=== PATIENT | male | born 1960 | race African-American/Black ===

== ENCOUNTER 2017-02-01 09:33 | Emergency (ER) | payer OTHER ==
[~2017-02-01] VITALS: Ht 165.1 cm; Wt 106.3 kg
[~2017-02-01 09:33] MED LIST: ASPI325T24 PO; LISI-586 PO; MEGATAB4 PO
[2017-02-01 09:36] VITALS: BP 160/106; PULSE 76; RESP 16; TEMP 98.3; O2SAT 96
[2017-02-01] MEDS ORDERED: LISI-515 PO (09:43)
--- NOTE | 2017-02-01 09:55 | PD ---
HPI Chief Complaint: Laceration/Skin Injury Time Seen by Provider: 09:42 Travel History International Travel<30 days: No Contact w/Intl Traveler<30days: No Traveled to known affect area: No History of Present Illness HPI The patient is a 57-year-old male who presents emergency department for a puncture wound to the right hand. The patient was physician earlier today when he received a puncture to the right hand between the thumb and index finger with a catfish arley. The patient had a family member pulled the catfish arley out, she believes that she pulled the entire catfish arley out. He does state it bled initially but is currently stopped. Last tetanus shot is unknown. He notes minimal pain to the affected area. He is right-hand dominant. There is no weakness, paresthesias, numbness, or tingling of the right upper extremity. Symptoms are mild, exacerbated after a puncture wound to the affected area, and alleviated after a family member pulled the arley from the hand. PFSH Past Medical History Cancer: No Cardiovascular Problems: No Diabetes: No Endocrine: No Gastrointestinal Disorders: Yes (ACID REFLUX) Genitourinary: No Hepatitis: No Hiatal Hernia: No Hypertension: Yes Immune Disorder: No Musculoskeletal: No Neurologic: No Psychiatric: No Reproductive: No Respiratory: No Integumentary: Yes (CYST ON HEAD, JUST FINISHED TREATING FOR INFECTION) Thyroid Disease: No Tetanus Vaccination: Unknown Influenza Vaccination: Yes ?: Not Past Surgical History AICD: No Joint Replacement: No Pacemaker: No Other Surgery: Yes Social History Alcohol Use: No Tobacco Use: No Substance Use: No Allergies-Medications (Allergen,Severity, Reaction): Coded Allergies: No Known Allergies (Verified , 02/01/17) Reported Meds & Prescriptions Reported Meds & Active Scripts Active Doxycycline Hyclate 100 Mg Cap 100 Mg PO BID 7 Days Levaquin (Levofloxacin) 750 Mg Tablet 1 Tab PO DAILY Reported Lisinopril 20 Mg Tab 20 Mg PO DAILY Review of Systems General / Constitutional: No: Fever Musculoskeletal: Positive: Pain Skin: Positive Other (puncture wound) Neurologic: No: Paresthesia, Sensory Disturbance Physical Exam Narrative GENERAL: Awake, alert, very pleasant 57-year-old male who appears his stated age and is in no acute respiratory distress. SKIN: Focused skin assessment warm/dry. HEAD: Atraumatic. Normocephalic. EYES: No injection or drainage. NECK: Trachea midline. No JVD. MUSCULOSKELETAL: Patient has a small puncture wound to the webspace between the thumb and index finger. There is no palpable foreign body. No palpable abscess. Minimal edema noted. Positive right radial pulse. Full range of motion with flexion of the MCP, PIP, and DIP. NEUROLOGICAL: Awake and alert. No obvious cranial nerve deficits. Motor grossly within normal limits. Normal speech. PSYCHIATRIC: Appropriate mood and affect; insight and judgment normal. Data Data Last Documented VS Vital Signs Date Time Temp Pulse Resp B/P Pulse Ox O2 Delivery O2 Flow Rate FiO2 02/01/17 09:36 98.3 76 16 160/106 96 Orders Tetanus/Diphtheria Tox Adult (Tetanus/Di (02/01/17 10:00) Hand, Limited (2vws) (02/01/17 ) Doxycycline (Vibramycin) (02/01/17 10:15) Levofloxacin (Levaquin) (02/01/17 10:15) MDM Medical Decision Making Medical Screen Exam Complete: Yes Emergency Medical Condition: Yes Medical Record Reviewed: Yes Interpretation(s) X-ray of the right hand reveals no radiopaque foreign bodies visible Differential Diagnosis Differential diagnosis includes puncture wound, retained foreign body, abscess, neurovascular injury. Narrative Course An x-ray of the right hand was obtained to rule out foreign body. The patient' s wound was cleaned, and then soaked in warm water with a small amount of Betadine. The tetanus shot was updated. Diagnosis Primary Impression: Puncture wound Patient Instructions: General Instructions Additional Instructions: Medications as directed. Follow-up with your primary physician. Antibiotics as directed. Return if symptoms worsen or progress. Med/Other Pt SpecificInfo: Prescription(s) given Scripts Doxycycline Hyclate 100 Mg [id number] Mg PO BID 7 Days Ref 0 Prov:Moses Alejo MD 02/01/17 Levofloxacin (Levaquin)750 Mg Tablet1 Tab PO DAILY #7 Prov:Moses Alejo MD 02/01/17 Disposition: 01 DISCHARGE HOME Condition: Stable Moses Alejo MD Feb 01, 2017 09:55
[2017-02-01] MEDS ORDERED: LEVA750T9 PO (10:00)
[2017-02-01] MEDS ORDERED: TETANUS/DIPHTHERIA TOXOID ADULT 0.5 ML VIAL IM ONE (10:00)
[2017-02-01] MEDS ORDERED: DOXY100C PO (10:00)
[2017-02-01] MEDS ORDERED: LEVOFLOXACIN 750 MG TAB PO ONE (10:15)
[2017-02-01] MEDS ORDERED: DOXYCYCLINE HYCLATE 100 MG CAP PO ONE (10:15)
--- NOTE | 2017-02-01 10:21 | RADRPT ---
EXAM DATE/TIME: 02/01/2017 09:57 [facility] COMPARISON: No previous studies available for comparison. INDICATIONS : Foreign body, catfish arley punctured right hand between 1st and 2nd digit. MEDICAL HISTORY : None. SURGICAL HISTORY : None. ENCOUNTER: Initial ACUITY: 1 day PAIN SCORE: 3/10 LOCATION: Right hand FINDINGS: Two view examination of the right hand demonstrates no soft tissue swelling, dislocation, or fracture . The joint spaces are maintained. Bony mineralization is normal. No foreign bodies are demonstrat ed between the first and second fingers. CONCLUSION: No radiopaque foreign bodies demonstrated. Gonzales Patel MD on February 01, 2017 at 10:18 Board Certified Radiologist. This report was verified electronically.
== END 2017-02-01 10:37 | disposition home or self-care (01) ==
LOC: PHED 09:33
DX: S61.431A Puncture wound without foreign body of right hand, initial encounter (principal); W56.59XA Other contact with other fish, initial encounter; Z23 Encounter for immunization
CPT/HCPCS: 73120; 90471; 90714

== ENCOUNTER 2017-10-07 17:37 | Emergency (ER) | payer OTHER ==
[~2017-10-07] VITALS: Ht 165.1 cm; Wt 102.0 kg
[~2017-10-07 17:37] MED LIST changes: -ASPI325T24 PO; +DOXY100C PO; +LEVA750T9 PO; +LISI-515 PO; -LISI-586 PO; -MEGATAB4 PO
[2017-10-07 17:47] VITALS: BP 188/87; PULSE 101; RESP 18; TEMP 99.4; O2SAT 97
== END 2017-10-07 18:37 | disposition left against medical advice (07) ==
LOC: NED 17:37
DX: L98.9 Disorder of the skin and subcutaneous tissue, unspecified (principal)
CPT/HCPCS: 99281

== ENCOUNTER 2018-06-08 19:36 | Inpatient (IN) ==
[2018-06-08] MEDS ORDERED: Pantoprazole Inj 40 MG Vial IV.PUSH ONE (21:14)
[2018-06-08] MEDS ORDERED: Sod Chloride 0.9% Inj 1,000 ML IV.SIG ONE (21:14)
--- NOTE | 2018-06-08 21:23 | ED ---
HPI General Chief complaint: Medical Clearance Stated complaint: Rectal bleeding Time Seen by Provider: 06/08/18 21:04 Source: patient and RN notes reviewed Mode of arrival: ambulatory Limitations: no limitations History of Present Illness HPI Narrative: 58-year-old male presents to the emergency department for evaluation of rectal bleeding that started on , 2 days ago. He states that when he has a bowel movement, and will fill the bowl with blood. Patient states he is having associated diarrhea, multiple episodes daily. He went to his primary care physician on and his primary care physician thought it was due to hemorrhoids and prescribed him suppositories. The patient states the bleeding has continued and has not slowed down. He states that today while working outdoors, he felt fatigued and short of breath so he was concerned that he was anemic. He denies any history of GI bleed in the past. He states he was on a baby aspirin, but quit taking it on when the bleeding started. He is not on any other anticoagulants. He denies any alcohol use. He denies taking any anti-inflammatories. He denies any other symptoms or complaints. Moderate severity. MD complaint: Reports gross hematochezia Onset (ago): day(s) (2) Pain Consistency: constant Severity: mild Relieving factors: bowel movement Context: Reports hemorrhoids; Denies history of GI bleed, liver disease, swallowed FB, rectal trauma, alcohol abuse, known esophageal varices, foreign travel, unusual food and anticoagulant use Associated symptoms: Reports denies other symptoms Treatments Prior to Arrival: Reports suppositories Related Data Home Medications Medication Instructions Recorded Confirmed aspirin [Aspirin Childrens] 81 mg PO DAILY 06/08/18 06/08/18 lisinopril 20 mg PO DAILY 06/08/18 06/08/18 Allergies Allergy/AdvReac Type Severity Reaction Status Date / Time No Known Allergies Allergy Verified 06/08/18 21:15 Review of Systems ROS: all other systems reviewed are negative [facility] Medical History Medical History Hypertension (Acute) Social History Social History Substance History: No History of Abuse Second Hand Smoke Exposure: No Smoking Status: Never smoker How Often Do You Have a Drink Containing Alcohol: Never Recent Travel in [place] within the Last 8 Weeks: No Recent Out of Country Travel within the Last 8 Weeks: No Immunization History Tetanus Immunization: <5 Years Exam Narrative Exam Narrative: GENERAL: Well-nourished, well-developed male patient, afebrile. SKIN: Focused skin assessment warm/dry. HEAD: Normocephalic. Atraumatic. EYES: No scleral icterus. No injection or drainage. NECK: Supple, trachea midline. No JVD or lymphadenopathy. CARDIOVASCULAR: Regular rate and rhythm without murmurs, gallops, or rubs. RESPIRATORY: Breath sounds equal bilaterally. No accessory muscle use. Lung sounds are clear to auscultation GASTROINTESTINAL: Abdomen soft, non-tender, nondistended. MUSCULOSKELETAL: No cyanosis, or edema. RECTAL EXAM: No masses or tenderness, stool is dark red, Hemoccult is grossly positive. This exam was done with RN at bedside Procedures Hemaprompt Stool Procedural Steps Taken: specimen placed in appropriate test area, developer placed on specimen and control areas and controls appropriately positive and negative Hemaprompt Stool Result: positive Course Initial Documented Vital Signs Temperature 98.8 F 06/08/18 19:53 Pulse Rate 100 H 06/08/18 19:53 Respiratory Rate 16 06/08/18 19:53 Blood Pressure 141/63 H 06/08/18 19:53 Pulse Oximetry 97 06/08/18 19:53 Last Documented Vital Signs Temperature 98.8 F 06/08/18 19:53 Pulse Rate 88 06/08/18 21:20 Respiratory Rate 18 06/08/18 21:20 Blood Pressure 141/62 H 06/08/18 21:20 Pulse Oximetry 99 06/08/18 21:20 Medical Decision Making MUSTAPHA Attestation MUSTAPHA supervised visit: Yes Attestation: I was present with the advanced practitioner during the management of this patient. I discussed the case with the advanced practitioner and agree with the findings and plan as documented in their note except as noted below. 58yM presenting with lower GI bleed x 3 days. Patient has a distant history of diverticulosis/ diverticulitis which has not required intervention in the past, reports several episodes of dark red blood per rectum. He is on baby aspirin daily. He presented to the ED today because he was having palpitations, dyspnea , and fatigue while trying to do yardwork this afternoon. His abdomen is soft and non-tender in all quadrants. He was found to have diverticulosis and Hg 7.2 , will give PRBCs as patient is symptomatic. Patient will need to stay in the hospital for transfusion, re-evaluation at frequent intervals, and possible consultation. Patient understands and agrees with plan, informed consent is signed and on chart. MDM Narrative Medical decision making narrative: 58-year-old male presents to the emergency department for evaluation of GI bleed with associated diarrhea and fatigue since . IV access obtained. CBC, CMP, lipase, PTT, PT/INR, type and screen, CT abdomen/pelvis are ordered and pending. Patient is given normal saline 1 L IV bolus, Protonix 40 mg IV. CBC shows leukocytosis 12.0, anemia hemoglobin 7.2, hematocrit 22.8. CMP shows no acute abnormality. Lipase is 119. PTT is 24.8. PT/INR is 10.3/1.0. CT abdomen/pelvis shows No acute abnormalities are demonstrated; Sigmoid colon diverticulosis. No diverticulitis or other acute inflammatory changes. 2 units PRBCs are ordered. Patient will be admitted for GI consult, GI bleed. He verbalizes agreement. Medical Screen Exam Complete: Yes Emergency Medical Condition: Yes Differential Diagnosis Differential Diagnosis: colitis vs. lower GI bleed vs. hemorrhoids vs. anemia Medical Records Medical records reviewed: Yes I reviewed the patient's medical records. Lab Data Result diagrams: 06/08/18 21:55 06/08/18 21:55 Lab Results 06/08/18 06/08/18 06/08/18 Range/Units 21:55 21:55 21:55 WBC 12.0 H (4.0-11.0) th/mm3 RBC 2.73 L (4.50-5.90) mil/mm3 Hgb 7.2 L (13.0-17.0) gm/dL Hct 22.8 L (39.0-51.0) % MCV 83.7 (80.0-100.0) fL MCH 26.3 L (27.0-34.0) pg MCHC 31.4 L (32.0-36.0) % RDW 13.4 (11.6-17.2) % Plt Count 311 (150-450) th/mm3 MPV 7.7 (7.0-11.0) fL Neut % (Auto) 60.1 (16.0-70.0) % Lymph % (Auto) 27.3 (9.0-44.0) % [place] % (Auto) 8.9 H (0.0-8.0) % Eos % (Auto) 3.3 (0.0-4.0) % Baso % (Auto) 0.4 (0.0-2.0) % Neut # (Auto) 7.2 (1.8-7.7) th/mm3 Lymph # (Auto) 3.3 (1.0-4.8) th/mm3 [place] # (Auto) 1.1 H (0.0-0.9) th/mm3 Eos # (Auto) 0.4 (0.0-0.4) th/mm3 Baso # (Auto) 0.0 (0.0-0.2) th/mm3 WBC Differential . Differential Comment Auto diff final PT 10.3 (9.8-11.6) sec INR 1.0 Ratio APTT 24.8 (23.4-31.7) sec Sodium 145 (136-145) meq/L Potassium 4.2 (3.5-5.1) meq/L Chloride 109 H (98-107) meq/L Carbon Dioxide 28.5 (21.0-32.0) meq/L Anion Gap 8 (5-15) meq/L BUN 15 (7-18) mg/dL Creatinine 1.16 (0.60-1.30) mg/dL Estimated GFR 78 L (>89) mL/min Random Glucose 105 (74-106) mg/dL Calcium 7.9 L (8.5-10.1) mg/dL Total Bilirubin 0.1 L (0.2-1.0) mg/dL AST 20 (15-37) U/L ALT 28 (12-78) U/L Alkaline Phosphatase 49 (45-117) U/L Total Protein 6.2 L (6.4-8.2) g/dL Albumin 3.1 L (3.4-5.0) g/dL Lipase 119 (73-393) U/L Blood Type Blood Type Recheck Antibody Screen MTS Gel Crossmatch 06/08/18 06/08/18 Range/Units 21:55 22:25 WBC (4.0-11.0) th/mm3 RBC (4.50-5.90) mil/mm3 Hgb (13.0-17.0) gm/dL Hct (39.0-51.0) % MCV (80.0-100.0) fL MCH (27.0-34.0) pg MCHC (32.0-36.0) % RDW (11.6-17.2) % Plt Count (150-450) th/mm3 MPV (7.0-11.0) fL Neut % (Auto) (16.0-70.0) % Lymph % (Auto) (9.0-44.0) % [place] % (Auto) (0.0-8.0) % Eos % (Auto) (0.0-4.0) % Baso % (Auto) (0.0-2.0) % Neut # (Auto) (1.8-7.7) th/mm3 Lymph # (Auto) (1.0-4.8) th/mm3 [place] # (Auto) (0.0-0.9) th/mm3 Eos # (Auto) (0.0-0.4) th/mm3 Baso # (Auto) (0.0-0.2) th/mm3 WBC Differential Differential Comment PT (9.8-11.6) sec INR Ratio APTT (23.4-31.7) sec Sodium (136-145) meq/L Potassium (3.5-5.1) meq/L Chloride (98-107) meq/L Carbon Dioxide (21.0-32.0) meq/L Anion Gap (5-15) meq/L BUN (7-18) mg/dL Creatinine (0.60-1.30) mg/dL Estimated GFR (>89) mL/min Random Glucose (74-106) mg/dL Calcium (8.5-10.1) mg/dL Total Bilirubin (0.2-1.0) mg/dL AST (15-37) U/L ALT (12-78) U/L Alkaline Phosphatase (45-117) U/L Total Protein (6.4-8.2) g/dL Albumin (3.4-5.0) g/dL Lipase (73-393) U/L Blood Type O Negative Blood Type Recheck Required Antibody Screen Negative MTS Gel Crossmatch See Detail Imaging Data Radiologist's impression: Abdomen/Pelvis CT 06/08/18 21:14 CONCLUSION: 1. No acute abnormalities are demonstrated. 2. Sigmoid colon diverticulosis. No diverticulitis or other acute inflammatory changes. Discharge Plan Discharge Disposition Patient Disposition: 30 Still Patient Discharge Condition Condition: Stable Discharge Details Diagnosis: GI bleed, Anemia Physicians Team ED Provider: Paola Levine ED Midlevel Provider: Jannet Mohamud Primary Care Provider: HOMERO, Attending Provider: Kayla Oconnor Other Providers: Issac Joy Discharge Interventions Interventions: Vital Signs Last Done: 06/08/18 21:20 Status ED Status: Admitted Patient
--- NOTE | 2018-06-08 22:05 | CT ---
EXAM DATE: 06/08/2018 9:56 PM EST AGE/SEX: 58 years / Male INDICATIONS: Rectal bleeding past 2 days. CLINICAL DATA: This is the patient's initial encounter. Patient reports that signs and symptoms have been present for 2 days and indicates a pain score of 0/10. MEDICAL/SURGICAL HISTORY: Hypertension. None. RADIATION DOSE: 21.29 CTDI (mGy) COMPARISON: No prior exams available for comparison. TECHNIQUE: Multiple contiguous axial images were obtained through the abdomen. Images were obtained using multiple row detector helical technique. Using automated exposure control and adjustment of the mA and/or kV according to patient size, radiation dose was kept as low as reasonably achievable to o btain optimal diagnostic quality images. DICOM format image data is available electronically for rev iew and comparison. FINDINGS: Lower Lungs: The visualized lower lungs are clear. Coronary artery calcification noted. Liver: The liver has a homogeneous density without space-occupying lesion. There is no dilation of th e biliary tree. Spleen: Homogeneous density without enlargement. Pancreas: Unremarkable without mass or calcification. Kidneys: Normal in size and shape. No evidence of mass or hydronephrosis. Adrenal Glands: Unremarkable. Aorta: The aorta and proximal iliac vessels are grossly unremarkable without aneurysmal dilation. Bowel/Mesentery: Moderate severity diverticulosis involves the sigmoid colon. No acute inflammatory changes are seen. The appendix is normal. Bowel gas pattern is nonobstructive. No perceptible masses. No free fluid or free air. No lymphadenopathy. Abdominal Wall: Intact. Retroperitoneum: No evidence of adenopathy in the retrocrural, para-aortic, or deep pelvic regions. Bladder: Contours are smooth. Reproductive Organs: No abnormal masses or calcifications seen. Inguinal: The inguinal region is unremarkable without evidence of adenopathy. Bony Structures: Unremarkable. CONCLUSION: 1. No acute abnormalities are demonstrated. 2. Sigmoid colon diverticulosis. No diverticulitis or other acute inflammatory changes. Electronically signed by: Apolinar Luong MD 06/08/2018 10:03 PM EST
[2018-06-08 22:20] LABS: Baso % (Auto) 0.4 % (0.0-2.0); Eos # (Auto) 0.4 th/mm3 (0.0-0.4); Eos % (Auto) 3.3 % (0.0-4.0); Hematocrit 22.8 % (39.0-51.0); Hemoglobin 7.2 gm/dL (13.0-17.0); Lymph # (Auto) 3.3 th/mm3 (1.0-4.8); Lymph % (Auto) 27.3 % (9.0-44.0); Mean Corpuscular HGB Conc 31.4 % (32.0-36.0); Mean Corpuscular Hemoglobin 26.3 pg (27.0-34.0); Mean Corpuscular Volume 83.7 fL (80.0-100.0); Mean Platelet Volume 7.7 fL (7.0-11.0); Mono # (Auto) 1.1 th/mm3 (0.0-0.9); Mono % (Auto) 8.9 % (0.0-8.0); Neut # (Auto) 7.2 th/mm3 (1.8-7.7); Neut % (Auto) 60.1 % (16.0-70.0); Platelet Count 311 th/mm3 (150-450); Red Blood Count 2.73 mil/mm3 (4.50-5.90); Red Cell Distribution Width 13.4 % (11.6-17.2)
[2018-06-08 22:26] LABS: Activated Partial Thrombo Time 24.8 sec (23.4-31.7); Prothrombin Time 10.3 sec (9.8-11.6)
[2018-06-08 22:34] LABS: Alanine Aminotransferase 28 U/L (12-78); Albumin 3.1 g/dL (3.4-5.0); Anion Gap 8 meq/L (5-15); Aspartate Aminotransferase 20 U/L (15-37); Blood Urea Nitrogen 15 mg/dL (7-18); Calcium 7.9 mg/dL (8.5-10.1); Carbon Dioxide 28.5 meq/L (21.0-32.0); Chloride 109 meq/L (98-107); Glomerular Filtration Rate 78 mL/min (>89); Glucose,Random 105 mg/dL (74-106); Lipase 119 U/L (73-393); Potassium 4.2 meq/L (3.5-5.1); Sodium 145 meq/L (136-145)
[2018-06-08 22:36] LABS: Alkaline Phosphatase 49 U/L (45-117); Total Protein 6.2 g/dL (6.4-8.2)
[2018-06-08] MEDS ORDERED: Acetaminophen 325 MG Tablet PO PRN (22:53)
[2018-06-08] MEDS ORDERED: Bisacodyl 10 MG Supp RECTAL PRN (22:53)
--- NOTE | 2018-06-08 22:55 | P.HPIM ---
History of Present Illness Primary Care Physician: UNKNOWN History of Present Illness: This is a 58-year-old male with a PMH of HTN who presented to the ER for c/o rectal bleeding x2 days. States he has a h/o rectal bleeding from hemorrhoids approx 10yrs ago, s/p Colonoscopy q5 yrs which have been stable. States he woke up 2 days ago and had a bowel movement w/ significant amount of blood in the toilet, also notes multiple episodes of diarrhea. Seen by PCP at that time , symptoms thought to be due to hemorrhoids and given suppository. Notes ongoing rectal bleeding. On ASA 325mg qd, however stopped taking it 2 days ago at onset of symptoms. Also notes lethargy/fatigue. On arrival, BP 141/63, HR 100, O2 sat 97% on RA, Afebrile. WBC 12.0. Hemoglobin 7.2, previously 13.4 on 10/05/2011. INR 1.0. Chemistry essentially unremarkable. CT Abdomen/Pelvis no acute findings. 2u pRBC ordered in ER, currently pending transfusion. - Diagnosis (1) GI bleed (2) Anemia Review of Systems PAST FAMILY HISTORY: Reviewed. No h/o DM or CAD All other systems reviewed negative except as stated in HPI PMFSH - History History Provided By: Medical Record - Medical History Medical History: Medical History (Last Updated 06/08/18 @ 19:56 by Zandra Alvarez RN) Hypertension - Tobacco History Second Hand Smoke Exposure: No Smoking Status: Never smoker - Alcohol History How Often Do You Have a Drink Containing Alcohol: Never - Substance Use History Substance History: No History of Abuse - Travel History Recent Travel in the [facility] Within the Last 8 Weeks: No Recent Travel Out of the Country Within the Last 8 Weeks: No - Immunization History Tetanus Immunization: <5 Years Medications and Allergies Active Medications: Active Medications Sodium Chloride (Ns Flush) 2 ml IV.FLUSH PRN PRN PRN Reason: FLUSH AFTER USING IV ACCESS Allergies Allergy/AdvReac Type Severity Reaction Status Date / Time No Known Allergies Allergy Verified 06/08/18 21:15 Home Medications Medication Instructions Recorded Confirmed Type aspirin [Aspirin Childrens] 81 mg PO DAILY 06/08/18 06/08/18 History lisinopril 20 mg PO DAILY 06/08/18 06/08/18 History Exam Vital signs: Vital Signs 06/08/18 19:53 06/08/18 21:20 Temperature 98.8 F Pulse Rate 100 H 88 Respiratory Rate 16 18 Blood Pressure 141/63 H 141/62 H Pulse Oximetry 97 99 Intake & Output 06/08/18 06/08/18 06/09/18 06:59 18:59 06:59 Weight 101 kg Narrative: PE: GENERAL: Extremely pleasant middle-aged black male in no acute distress. SKIN: Focused skin assessment warm and dry. HEENT: PERRLA, EOMI. No scleral icterus or conjunctival pallor. No lid lag or facial droop. CARDIOVASCULAR: Regular rate and rhythm. No obvious murmurs to auscultation. No chest tenderness to palpation. RESPIRATORY: No obvious rhonchi or wheezing. Clear to auscultation. Breath sounds equal bilaterally. GASTROINTESTINAL: Abdomen soft, non-tender, nondistended. BS normal. MUSCULOSKELETAL: Extremities without clubbing, cyanosis, or edema. No obvious deformities. NEUROLOGICAL: Awake, alert and oriented x4. No focal neurologic deficits. Moving both upper and lower extremities spontaneously. PSYCHIATRIC: Appropriate mood and affect. Insight and judgment normal. Results - Labs CBC & Chem 7: 06/08/18 21:55 06/08/18 21:55 Labs: Short CBC 06/08/18 Range/Units 21:55 WBC 12.0 H (4.0-11.0) th/mm3 Hgb 7.2 L (13.0-17.0) gm/dL Hct 22.8 L (39.0-51.0) % Plt Count 311 (150-450) th/mm3 BMP 06/08/18 21:55 Sodium 145 Potassium 4.2 Chloride 109 H Carbon Dioxide 28.5 BUN 15 Creatinine 1.16 Calcium 7.9 L Liver Function 06/08/18 Range/Units 21:55 Total Bilirubin 0.1 L (0.2-1.0) mg/dL AST 20 (15-37) U/L ALT 28 (12-78) U/L Alkaline Phosphatase 49 (45-117) U/L Albumin 3.1 L (3.4-5.0) g/dL - Imaging Impressions Abdomen/Pelvis CT 06/08/18 21:14 CONCLUSION: 1. No acute abnormalities are demonstrated. 2. Sigmoid colon diverticulosis. No diverticulitis or other acute inflammatory changes. Caprini VTE Risk Assessment Caprini VTE Risk Assessment: No/Low Risk (score <= 1) VTE Pharmacological Exception Reason: Active bleeding Caprini Risk Assessment Model: Point Value = 1 Point Value = 2 Point Value = 3 Point Value = 5 Age 41-60 Minor surgery BMI > 25 kg/m2 Swollen legs Varicose veins or History of unexplained or recurrent spontaneous Oral contraceptives or hormone replacement Sepsis (< 1 month) Serious lung disease, including pneumonia (< 1 month) Abnormal pulmonary function Acute myocardial infarction Congestive heart failure (< 1 month) History of inflammatory bowel disease Medical patient at bed rest Age 61-74 Arthroscopic surgery Major open surgery (> 45 min) Laparoscopic surgery (> 45 min) Malignancy Confined to bed (> 72 hours) Immobilizing plaster cast Central venous access Age >= 75 History of VTE Family history of VTE Factor V Leiden Prothrombin [id number] Lupus anticoagulant Anticardiolipin antibodies Elevated serum homocysteine Heparin-induced thrombocytopenia Other congenital or acquired thrombophilia Stroke (< 1 month) Elective arthroplasty Hip, pelvis, or leg fracture Acute spinal cord injury (< 1 month) Prophylaxis Regimen: Total Risk Factor Score Risk Level Prophylaxis Regimen 0-1 Low Early ambulation 2 Moderate Order ONE of the following: *Sequential Compression Device (SCD) *Heparin 5000 units SQ BID 3-4 Higher Order ONE of the following medications: *Heparin 5000 units SQ TID *Enoxaparin/Lovenox 40 mg SQ daily (WT < 150 kg, CrCl > 30 mL/min) *Enoxaparin/Lovenox 30 mg SQ daily (WT < 150 kg, CrCl > 10-29 mL/min) *Enoxaparin/Lovenox 30 mg SQ BID (WT < 150 kg, CrCl > 30 mL/min) AND/OR *Sequential Compression Device (SCD) 5 or more Highest Order ONE of the following medications: *Heparin 5000 units SQ TID (Preferred with Epidurals) *Enoxaparin/Lovenox 40 mg SQ daily (WT < 150 kg, CrCl > 30 mL/min) *Enoxaparin/Lovenox 30 mg SQ daily (WT < 150 kg, CrCl > 10-29 mL/min) *Enoxaparin/Lovenox 30 mg SQ BID (WT < 150 kg, CrCl > 30 mL/min) AND *Sequential Compression Device (SCD) Assessment and Plan - Assessment (1) GI bleed Code(s): K92.2 - Gastrointestinal hemorrhage, unspecified Status: Acute (2) Anemia Code(s): D64.9 - Anemia, unspecified Status: Acute - Plan A/P: 1. GI Bleed: +rectal bleeding x2 days, stopped ASA 325mg 2 days ago, ongoing rectal bleeding w/ diarrhea. CT Abd/Pelvis w/ no acute findings, images reviewed. Consult GI for further eval/intervention. NPO after midnight. 2. Anemia: Symptomatic. Hgb 7.2, previously 13.4 on 10/05/11, +lethargy/ fatigue. 2u pRBC ordered for transfusion, follow up Hgb/Hct after transfusion complete. 3. DVT Prophylaxis: Pharmacologic contraindication in light of active bleeding 4. Social work for d/c planning as needed 5. Case discussed w/ ER physician at length, labs/records/imaging reviewed by me. (1) GI bleed Qualifiers: GI bleed type/associated pathology: unspecified gastrointestinal hemorrhage type Qualified Code(s): K92.2 - Gastrointestinal hemorrhage, unspecified (2) Anemia Qualifiers: Anemia type: unspecified type Qualified Code(s): D64.9 - Anemia, unspecified
--- NOTE | 2018-06-09 09:46 | P.CONGI ---
History of Present Illness Consult date: 06/09/18 Chief complaint: GI bleed, anemia History of Present Illness: This is a 58-year-old male who came into the hospital on 06/08/2018 with symptoms of uncontrolled rectal bleeding. Onset of symptoms approximately 3 days ago and states that the blood was bright red initially then turned a slightly darker color. Patient notes history of hemorrhoids, status post multiple colonoscopy , last one approximately 2 years ago along, no previous EGD. Patient denies any family history of colon cancer. Patient denies any nausea vomiting dyspepsia or dysphasia acute or chronic. Patient also has noted some diarrhea stools onset approximately 3 days ago when rectal bleeding was initiated. Patient also notes a history of the same symptoms approximately 10 years ago. Currently patient denies any abdominal pain. Labs reviewed which include hemoglobin 7.2, status post 2 unit packed RBC transfusion , WBC count 12, PT/INR 1, bilirubin and LFTs are normal. CT scan showed diverticulosis. Gastroenterology was consulted to assist in his care. Patient does note regular aspirin dose 325 mg daily but no ASA for the past 3 days. <Vida Rodriguez - Last Filed: 06/09/18 15:07> Review of Systems All other systems reviewed negative except as stated in HPI <Vida Rodriguez - Last Filed: 06/09/18 15:07> PMFSH - Medical History Medical History: Medical History (Last Updated 06/08/18 @ 19:56 by Zandra Alvarez RN) Hypertension <Issac Joy - Last Filed: 06/09/18 12:45> - History History Provided By: Patient, Medical Record - Medical History Medical History: Medical History (Last Updated 06/08/18 @ 19:56 by Zandra Alvarez RN) Hypertension - Tobacco History Second Hand Smoke Exposure: No Smoking Status: Never smoker - Alcohol History How Often Do You Have a Drink Containing Alcohol: Never - Substance Use History Substance History: No History of Abuse - Travel History Recent Travel in the [place] Within the Last 8 Weeks: No Recent Travel Out of the Country Within the Last 8 Weeks: No - Immunization History Tetanus Immunization: <5 Years <Vida Rodriguez - Last Filed: 06/09/18 15:07> Medications and Allergies Active Medications: Active Medications Acetaminophen (Tylenol) 650 mg PO Q4H PRN PRN Reason: Temp > 100.4 Al Hydroxide/Mg Hydroxide (Milk Of Magnesia Liq) 30 ml PO Q12H PRN PRN Reason: Mild Constipation Bisacodyl (Dulcolax Supp) 10 mg RECTAL DAILY PRN PRN Reason: SEVERE CONSITIPATION Bisacodyl (Dulcolax Ec) 20 mg PO ONCE ONE Stop: 06/09/18 16:01 Lactulose (Lactulose Liq) 30 ml PO DAILY PRN PRN Reason: SEVERE CONSITIPATION Magnesium Citrate (Citroma Liq) 300 ml PO ONCE ONE Stop: 06/09/18 16:01 Magnesium Citrate (Citroma Liq) 300 ml PO ONCE ONE Stop: 06/09/18 17:01 Ondansetron HCl (Zofran Inj) 4 mg IV.PUSH Q6H PRN PRN Reason: NAUSEA OR VOMITING Pantoprazole Sodium (Protonix Inj) 40 mg IV.PUSH Q12H [facility] Last Admin: 06/09/18 10:56 Dose: 40 mg Senna/Docusate Sodium (Carol[place]-Colace) 1 tab PO BID [facility] Last Admin: 06/09/18 10:56 Dose: 1 tab Sennosides (Senokot) 17.2 mg PO Q12H PRN PRN Reason: Moderate Constipation Sodium Chloride (Ns Flush) 2 ml IV.FLUSH PRN PRN PRN Reason: FLUSH AFTER USING IV ACCESS <Issac Joy - Last Filed: 06/09/18 12:45> Active Medications: Active Medications Acetaminophen (Tylenol) 650 mg PO Q4H PRN PRN Reason: Temp > 100.4 Al Hydroxide/Mg Hydroxide (Milk Of Magnesia Liq) 30 ml PO Q12H PRN PRN Reason: Mild Constipation Bisacodyl (Dulcolax Supp) 10 mg RECTAL DAILY PRN PRN Reason: SEVERE CONSITIPATION Bisacodyl (Dulcolax Ec) 20 mg PO ONCE ONE Stop: 06/09/18 16:01 Lactulose (Lactulose Liq) 30 ml PO DAILY PRN PRN Reason: SEVERE CONSITIPATION Magnesium Citrate (Citroma Liq) 300 ml PO ONCE ONE Stop: 06/09/18 16:01 Magnesium Citrate (Citroma Liq) 300 ml PO ONCE ONE Stop: 06/09/18 17:01 Ondansetron HCl (Zofran Inj) 4 mg IV.PUSH Q6H PRN PRN Reason: NAUSEA OR VOMITING Pantoprazole Sodium (Protonix Inj) 40 mg IV.PUSH Q12H TOBIAS Senna/Docusate Sodium ([place]-Colace) 1 tab PO BID [facility]BI[facility] Sennosides (Senokot) 17.2 mg PO Q12H PRN PRN Reason: Moderate Constipation Sodium Chloride (Ns Flush) 2 ml IV.FLUSH PRN PRN PRN Reason: FLUSH AFTER USING IV ACCESS <Vida Rodriguez - Last Filed: 06/09/18 15:07> Allergies Allergy/AdvReac Type Severity Reaction Status Date / Time No Known Allergies Allergy Verified 06/08/18 21:15 Home Medications Medication Instructions Recorded Confirmed Type aspirin [Aspirin Childrens] 81 mg PO DAILY 06/08/18 06/08/18 History lisinopril 20 mg PO DAILY 06/08/18 06/08/18 History Exam Vital signs: Vital Signs 06/08/18 19:53 06/08/18 21:20 06/09/18 00:00 Temperature 98.8 F 98.1 F Pulse Rate 100 H 88 88 Respiratory Rate 16 18 18 Blood Pressure 141/63 H 141/62 H 144/65 H Pulse Oximetry 97 99 99 06/09/18 02:09 06/09/18 02:30 06/09/18 04:00 Temperature 98.5 F 98.7 F 98.2 F Pulse Rate 93 H 89 89 Respiratory Rate 18 16 18 Blood Pressure 135/59 L 123/60 125/60 Pulse Oximetry 98 96 06/09/18 04:40 06/09/18 05:35 06/09/18 05:56 Temperature 97.6 F 98.7 F Pulse Rate 82 76 80 Respiratory Rate 18 16 Blood Pressure 145/65 H 139/65 Pulse Oximetry 99 100 06/09/18 08:00 06/09/18 11:39 Temperature 98.7 F 97.5 F L Pulse Rate 85 80 Respiratory Rate 16 16 Blood Pressure 154/70 H 146/63 H Pulse Oximetry 100 100 Intake & Output 06/08/18 06/09/18 06/09/18 18:59 06:59 18:59 Intake Total 1400 / 1400 Balance 1400 / 1400 Weight 101 kg Intake: IV 1000 / 1000 NS Inj 1,000 ML @ Wide Open IV. 1000 / 1000 SIG BOLUS ONE Rx#:[id number] Intake (Blood Product) Amt 400 / 400 Rbc As-3 Leukoreduced Unit 0 / 0 [id number] Rbc As-3 Leukoreduced Unit 400 / 400 [id number] Other: Weight On Admission 101 kg <Issac Joy - Last Filed: 06/09/18 12:45> Vital signs: Vital Signs 06/08/18 19:53 06/08/18 21:20 06/09/18 00:00 Temperature 98.8 F 98.1 F Pulse Rate 100 H 88 88 Respiratory Rate 16 18 18 Blood Pressure 141/63 H 141/62 H 144/65 H Pulse Oximetry 97 99 99 06/09/18 02:09 06/09/18 02:30 06/09/18 04:00 Temperature 98.5 F 98.7 F 98.2 F Pulse Rate 93 H 89 89 Respiratory Rate 18 16 18 Blood Pressure 135/59 L 123/60 125/60 Pulse Oximetry 98 96 06/09/18 04:40 06/09/18 05:35 06/09/18 05:56 Temperature 97.6 F 98.7 F Pulse Rate 82 76 80 Respiratory Rate 18 16 Blood Pressure 145/65 H 139/65 Pulse Oximetry 99 100 06/09/18 08:00 Temperature 98.7 F Pulse Rate 85 Respiratory Rate 16 Blood Pressure 154/70 H Pulse Oximetry 100 Intake & Output 06/08/18 06/09/18 06/09/18 18:59 06:59 18:59 Intake Total 1400 / 1400 Balance 1400 / 1400 Weight 101 kg Intake: IV 1000 / 1000 NS Inj 1,000 ML @ Wide Open IV. 1000 / 1000 SIG BOLUS ONE Rx#:[id number] Intake (Blood Product) Amt 400 / 400 Rbc As-3 Leukoreduced Unit 0 / 0 [id number] Rbc As-3 Leukoreduced Unit 400 / 400 [id number] Other: Weight On Admission 101 kg - Constitutional mild distress, obese, cooperative - Routine HEENT Exam Head: Present: normocephalic ENT: Present: mucous membranes moist - Routine Neck Exam Present: supple - Routine Respiratory Exam Present: CTA bilaterally (No obvious wheezing or rhonchi) - Routine Cardiovascular Exam Present: S1, S2 - Routine Abdominal Exam Present: soft (Round, no obvious tenderness to light palpation), normoactive bowel sounds - Routine Skin Exam Present: intact <Vida Rodriguez - Last Filed: 06/09/18 15:07> Results - Labs CBC & Chem 7: 06/09/18 11:50 06/08/18 21:55 Labs: Laboratory Results - last 24 hr 06/08/18 06/08/18 06/08/18 21:55 21:55 21:55 WBC 12.0 H RBC 2.73 L Hgb 7.2 L Hct 22.8 L MCV 83.7 MCH 26.3 L MCHC 31.4 L RDW 13.4 Plt Count 311 MPV 7.7 Neut % (Auto) 60.1 Lymph % (Auto) 27.3 [place] % (Auto) 8.9 H Eos % (Auto) 3.3 Baso % (Auto) 0.4 Neut # (Auto) 7.2 Lymph # (Auto) 3.3 [place] # (Auto) 1.1 H Eos # (Auto) 0.4 Baso # (Auto) 0.0 WBC Differential . Differential Comment Auto diff final PT 10.3 INR 1.0 APTT 24.8 Sodium 145 Potassium 4.2 Chloride 109 H Carbon Dioxide 28.5 Anion Gap 8 BUN 15 Creatinine 1.16 Estimated GFR 78 L Random Glucose 105 Calcium 7.9 L Total Bilirubin 0.1 L AST 20 ALT 28 Alkaline Phosphatase 49 Total Protein 6.2 L Albumin 3.1 L Lipase 119 Blood Type Blood Type Recheck Antibody Screen MTS Gel Crossmatch 06/08/18 06/08/18 06/09/18 21:55 22:25 11:50 WBC 14.0 H RBC 3.48 L Hgb 10.1 L D Hct 29.2 L MCV 84.1 MCH 28.9 MCHC 34.4 RDW 14.2 Plt Count 280 MPV 7.7 Neut % (Auto) 73.0 H Lymph % (Auto) 18.8 [place] % (Auto) 5.1 Eos % (Auto) 2.6 Baso % (Auto) 0.5 Neut # (Auto) 10.2 H Lymph # (Auto) 2.6 [place] # (Auto) 0.7 Eos # (Auto) 0.4 Baso # (Auto) 0.1 WBC Differential . Differential Comment Auto diff final PT INR APTT Sodium Potassium Chloride Carbon Dioxide Anion Gap BUN Creatinine Estimated GFR Random Glucose Calcium Total Bilirubin AST ALT Alkaline Phosphatase Total Protein Albumin Lipase Blood Type O Negative Blood Type Recheck Required Antibody Screen Negative MTS Gel Crossmatch See Detail - Imaging Impressions Abdomen/Pelvis CT 06/08/18 21:14 CONCLUSION: 1. No acute abnormalities are demonstrated. 2. Sigmoid colon diverticulosis. No diverticulitis or other acute inflammatory changes. <Issac Joy - Last Filed: 06/09/18 12:45> - Labs CBC & Chem 7: 06/09/18 11:50 06/09/18 11:50 Labs: Laboratory Results - last 24 hr 06/08/18 06/08/18 06/08/18 21:55 21:55 21:55 WBC 12.0 H RBC 2.73 L Hgb 7.2 L Hct 22.8 L MCV 83.7 MCH 26.3 L MCHC 31.4 L RDW 13.4 Plt Count 311 MPV 7.7 Neut % (Auto) 60.1 Lymph % (Auto) 27.3 [place] % (Auto) 8.9 H Eos % (Auto) 3.3 Baso % (Auto) 0.4 Neut # (Auto) 7.2 Lymph # (Auto) 3.3 [place] # (Auto) 1.1 H Eos # (Auto) 0.4 Baso # (Auto) 0.0 WBC Differential . Differential Comment Auto diff final PT 10.3 INR 1.0 APTT 24.8 Sodium 145 Potassium 4.2 Chloride 109 H Carbon Dioxide 28.5 Anion Gap 8 BUN 15 Creatinine 1.16 Estimated GFR 78 L Random Glucose 105 Calcium 7.9 L Total Bilirubin 0.1 L AST 20 ALT 28 Alkaline Phosphatase 49 Total Protein 6.2 L Albumin 3.1 L Lipase 119 Blood Type Blood Type Recheck Antibody Screen MTS Gel Crossmatch 06/08/18 06/08/18 21:55 22:25 WBC RBC Hgb Hct MCV MCH MCHC RDW Plt Count MPV Neut % (Auto) Lymph % (Auto) [place] % (Auto) Eos % (Auto) Baso % (Auto) Neut # (Auto) Lymph # (Auto) [place] # (Auto) Eos # (Auto) Baso # (Auto) WBC Differential Differential Comment PT INR APTT Sodium Potassium Chloride Carbon Dioxide Anion Gap BUN Creatinine Estimated GFR Random Glucose Calcium Total Bilirubin AST ALT Alkaline Phosphatase Total Protein Albumin Lipase Blood Type O Negative Blood Type Recheck Required Antibody Screen Negative MTS Gel Crossmatch See Detail - Imaging Impressions Abdomen/Pelvis CT 06/08/18 21:14 CONCLUSION: 1. No acute abnormalities are demonstrated. 2. Sigmoid colon diverticulosis. No diverticulitis or other acute inflammatory changes. <JenniferVida Jenifer - Last Filed: 06/09/18 15:07> Assessment and Plan - Plan Seen and examined with HOG RINGER, active bleeding, monitor labs. Transfuse as needed. IV Protonix. CT reviewed. Bowel prep today, egd/colonoscopy tomorrow. Thank you <RufinoDavenport - Last Filed: 06/09/18 12:45> - Plan 58-year-old male who came into the hospital on 06/08/2018 with symptoms of uncontrolled rectal bleeding. Onset of symptoms approximately 3 days ago and states that the blood was bright red initially then turned a slightly darker color. Patient notes history of hemorrhoids, status post multiple colonoscopy , last one approximately 2 years ago along, no previous EGD. Patient denies any family history of colon cancer. Patient denies any nausea vomiting dyspepsia or dysphasia acute or chronic. Patient also has noted some diarrhea stools onset approximately 3 days ago when rectal bleeding was initiated. Patient also notes a history of the same symptoms approximately 10 years ago. Currently patient denies any abdominal pain. Labs reviewed which include hemoglobin 7.2, status post 2 unit packed RBC transfusion, WBC count 12, PT/INR 1, bilirubin and LFTs are normal. CT scan showed diverticulosis. Gastroenterology was consulted to assist in his care. Patient does note regular aspirin dose 325 mg daily but no ASA for the past 3 days. Symptomatic anemia, probably related to rectal bleeding, diverticuli versus hemorrhoids or both Rectal bleeding times 3 days significant amount dripping in the toilet. Initially started out bright red bleeding but has darkened to a moderate to dark maroon color over the past [address] scan did show diverticulosis. History of fiber consumption outpatient daily routine. History of polyps last colonoscopy approximately 2 years ago but has had a total of 3 for surveillance of his polyps. Diverticulosis, seen on CT scan Plan Diet clear liquids today Consent for EGD/colonoscopy with possible IRC in a.m. n.p.o. at midnight except for medications needed Monitor labs and transfuse as needed Monitor bloody stools and any symptoms of dizziness or near syncopal episodes Supportive care Further recommendations to follow Patient was seen per myself and Dr. Joy, note was written on his behalf <Vida Rodriguez - Last Filed: 06/09/18 15:07>
[2018-06-09] MEDS: Pantoprazole Inj 40 MG Vial IV.PUSH SCH ×2 (10:56→21:00)
[2018-06-09] MEDS: Senna/Docusate Sodium 8.6/50 MG Tablet PO SCH ×2 (10:56→21:00)
[2018-06-09 12:29] LABS: Baso # (Auto) 0.1 th/mm3 (0.0-0.2); Baso % (Auto) 0.5 % (0.0-2.0); Eos # (Auto) 0.4 th/mm3 (0.0-0.4); Eos % (Auto) 2.6 % (0.0-4.0); Hematocrit 29.2 % (39.0-51.0); Hemoglobin 10.1 gm/dL (13.0-17.0); Lymph # (Auto) 2.6 th/mm3 (1.0-4.8); Lymph % (Auto) 18.8 % (9.0-44.0); Mean Corpuscular HGB Conc 34.4 % (32.0-36.0); Mean Corpuscular Hemoglobin 28.9 pg (27.0-34.0); Mean Corpuscular Volume 84.1 fL (80.0-100.0); Mean Platelet Volume 7.7 fL (7.0-11.0); Mono # (Auto) 0.7 th/mm3 (0.0-0.9); Mono % (Auto) 5.1 % (0.0-8.0); Neut # (Auto) 10.2 th/mm3 (1.8-7.7); Platelet Count 280 th/mm3 (150-450); Red Blood Count 3.48 mil/mm3 (4.50-5.90); Red Cell Distribution Width 14.2 % (11.6-17.2)
[2018-06-09 12:56] LABS: Albumin 3.5 g/dL (3.4-5.0); Anion Gap 10 meq/L (5-15); Aspartate Aminotransferase 21 U/L (15-37); Blood Urea Nitrogen 13 mg/dL (7-18); Calcium 7.9 mg/dL (8.5-10.1); Carbon Dioxide 25.5 meq/L (21.0-32.0); Chloride 108 meq/L (98-107); Glomerular Filtration Rate 81 mL/min (>89); Glucose,Random 118 mg/dL (74-106); Potassium 3.8 meq/L (3.5-5.1); Sodium 143 meq/L (136-145)
[2018-06-09 12:59] LABS: Alanine Aminotransferase 29 U/L (12-78); Alkaline Phosphatase 51 U/L (45-117); Total Protein 6.8 g/dL (6.4-8.2)
[2018-06-09] MEDS ORDERED: Magnesium Citrate Liq 300 ML Bottle PO ONE ×2 (16:00→17:00)
--- NOTE | 2018-06-09 16:30 | P.PN ---
Subjective Interval history: Patient is seen lying in bed. He is just completing second unit of PRBCs. Says that he feels better with less fatigue. No chest pain or shortness of breath. No nausea vomiting or diarrhea. Physical Exam Vital signs: Vital Signs 06/08/18 19:53 06/08/18 21:20 06/09/18 00:00 Temperature 98.8 F 98.1 F Pulse Rate 100 H 88 88 Respiratory Rate 16 18 18 Blood Pressure 141/63 H 141/62 H 144/65 H Pulse Oximetry 97 99 99 06/09/18 02:09 06/09/18 02:30 06/09/18 04:00 Temperature 98.5 F 98.7 F 98.2 F Pulse Rate 93 H 89 89 Respiratory Rate 18 16 18 Blood Pressure 135/59 L 123/60 125/60 Pulse Oximetry 98 96 06/09/18 04:40 06/09/18 05:35 06/09/18 05:56 Temperature 97.6 F 98.7 F Pulse Rate 82 76 80 Respiratory Rate 18 16 Blood Pressure 145/65 H 139/65 Pulse Oximetry 99 100 06/09/18 08:00 06/09/18 09:00 06/09/18 11:39 Temperature 98.7 F 97.5 F L Pulse Rate 85 82 80 Respiratory Rate 16 16 Blood Pressure 154/70 H 146/63 H Pulse Oximetry 100 100 06/09/18 16:00 Temperature 97.5 F L Pulse Rate 78 Respiratory Rate 16 Blood Pressure 134/66 Pulse Oximetry 99 Intake & Output 06/08/18 06/09/18 06/09/18 18:59 06:59 18:59 Intake Total 1400 / 1400 Balance 1400 / 1400 Weight 101 kg Intake: IV 1000 / 1000 NS Inj 1,000 ML @ Wide Open IV. 1000 / 1000 SIG BOLUS ONE Rx#:[id number] Intake (Blood Product) Amt 400 / 400 Rbc As-3 Leukoreduced Unit 0 / 0 [id number] Rbc As-3 Leukoreduced Unit 400 / 400 [id number] Other: Weight On Admission 101 kg Narrative: GENERAL: Extremely pleasant middle-aged -[place] male in no acute distress. SKIN: Focused skin assessment warm and dry. CARDIOVASCULAR: Regular rate and rhythm. No obvious murmurs to auscultation. No chest tenderness to palpation. RESPIRATORY: No obvious rhonchi or wheezing. Clear to auscultation. Breath sounds equal bilaterally. GASTROINTESTINAL: Abdomen soft, non-tender, nondistended. BS normal. MUSCULOSKELETAL: Extremities without clubbing, cyanosis, or edema. No obvious deformities. NEUROLOGICAL: Awake, alert and oriented x4. No focal neurologic deficits. Moving both upper and lower extremities spontaneously. PSYCHIATRIC: Appropriate mood and affect. Insight and judgment normal. Results - Labs CBC & Chem 7: 06/09/18 11:50 06/09/18 11:50 Laboratory Results - last 24 hr 06/08/18 06/08/18 06/08/18 21:55 21:55 21:55 WBC 12.0 H RBC 2.73 L Hgb 7.2 L Hct 22.8 L MCV 83.7 MCH 26.3 L MCHC 31.4 L RDW 13.4 Plt Count 311 MPV 7.7 Neut % (Auto) 60.1 Lymph % (Auto) 27.3 [place] % (Auto) 8.9 H Eos % (Auto) 3.3 Baso % (Auto) 0.4 Neut # (Auto) 7.2 Lymph # (Auto) 3.3 [place] # (Auto) 1.1 H Eos # (Auto) 0.4 Baso # (Auto) 0.0 WBC Differential . Differential Comment Auto diff final PT 10.3 INR 1.0 APTT 24.8 Sodium 145 Potassium 4.2 Chloride 109 H Carbon Dioxide 28.5 Anion Gap 8 BUN 15 Creatinine 1.16 Estimated GFR 78 L Random Glucose 105 Calcium 7.9 L Total Bilirubin 0.1 L AST 20 ALT 28 Alkaline Phosphatase 49 Total Protein 6.2 L Albumin 3.1 L Lipase 119 Blood Type Blood Type Recheck Antibody Screen MTS Gel Crossmatch 06/08/18 06/08/18 06/09/18 21:55 22:25 11:50 WBC 14.0 H RBC 3.48 L Hgb 10.1 L D Hct 29.2 L MCV 84.1 MCH 28.9 MCHC 34.4 RDW 14.2 Plt Count 280 MPV 7.7 Neut % (Auto) 73.0 H Lymph % (Auto) 18.8 [place] % (Auto) 5.1 Eos % (Auto) 2.6 Baso % (Auto) 0.5 Neut # (Auto) 10.2 H Lymph # (Auto) 2.6 [place] # (Auto) 0.7 Eos # (Auto) 0.4 Baso # (Auto) 0.1 WBC Differential . Differential Comment Auto diff final PT INR APTT Sodium Potassium Chloride Carbon Dioxide Anion Gap BUN Creatinine Estimated GFR Random Glucose Calcium Total Bilirubin AST ALT Alkaline Phosphatase Total Protein Albumin Lipase Blood Type O Negative Blood Type Recheck Required Antibody Screen Negative MTS Gel Crossmatch See Detail 06/09/18 11:50 WBC RBC Hgb Hct MCV MCH MCHC RDW Plt Count MPV Neut % (Auto) Lymph % (Auto) [place] % (Auto) Eos % (Auto) Baso % (Auto) Neut # (Auto) Lymph # (Auto) [place] # (Auto) Eos # (Auto) Baso # (Auto) WBC Differential Differential Comment PT INR APTT Sodium 143 Potassium 3.8 Chloride 108 H Carbon Dioxide 25.5 Anion Gap 10 BUN 13 Creatinine 1.12 Estimated GFR 81 L Random Glucose 118 H Calcium 7.9 L Total Bilirubin 0.7 AST 21 ALT 29 Alkaline Phosphatase 51 Total Protein 6.8 D Albumin 3.5 Lipase Blood Type Blood Type Recheck Antibody Screen MTS Gel Crossmatch - Imaging Impressions Abdomen/Pelvis CT 06/08/18 21:14 CONCLUSION: 1. No acute abnormalities are demonstrated. 2. Sigmoid colon diverticulosis. No diverticulitis or other acute inflammatory changes. Assessment and Plan - Assessment (1) GI bleed Code(s): K92.2 - Gastrointestinal hemorrhage, unspecified Status: Acute (2) Anemia Code(s): D64.9 - Anemia, unspecified Status: Acute - Plan 58-year-old -[place]in[place] male who comes to the ED after 2 days of rectal bleeding. GI Bleed: Consult GI for further eval/intervention. Plan colonoscopy on 06/10/18. Anemia: Symptomatic. Hgb 7.2 2u pRBC transfused on 06/09 DVT Prophylaxis: Pharmacologic contraindication in light of active bleeding Social work for d/c planning as needed (1) GI bleed Qualifiers: GI bleed type/associated pathology: unspecified gastrointestinal hemorrhage type Qualified Code(s): K92.2 - Gastrointestinal hemorrhage, unspecified (2) Anemia Qualifiers: Anemia type: unspecified type Qualified Code(s): D64.9 - Anemia, unspecified
[2018-06-09] MEDS ORDERED: Metoprolol Tartrate 25 MG Tablet PO PRN (16:45)
[2018-06-09] MEDS ORDERED: Chlorhexidine Gluconate 2% 1 Pack (2 Cloths) TOPICAL ONE (16:45)
[2018-06-09] MEDS ORDERED: Sodium Chlor 0.9% Inj 500 ML IV.SIG SCH (17:00)
[2018-06-10] MEDS: Pantoprazole Inj 40 MG Vial IV.PUSH SCH ×2 (09:00→20:04)
[2018-06-10] MEDS: Senna/Docusate Sodium 8.6/50 MG Tablet PO SCH ×2 (09:00→20:05)
[2018-06-10 09:03] VITALS: RESP 18
--- NOTE | 2018-06-10 12:06 | ECG ---
Date Performed: 06/10/2018 Time Performed: 07:07:29 PTAGE: 58 years EKG: Sinus rhythm INCOMPLETE RIGHT BUNDLE BRANCH BLOCK BORDERLINE ECG Since the PREVIOUS TRACING , no significant change noted PREVIOUS TRACIN05/20/2014 08.31 DOCTOR: Henrry Michelle Interpretating Date/Time 06/10/2018 12:02:44
--- NOTE | 2018-06-10 12:56 | P.PN ---
Subjective Interval history: Follow-up GI bleed/symptomatic anemia June 10, 2018-patient seen and examined, currently n.p.o. pending panendoscopy. Still reports bright red blood per rectum. by the bedside. Vital stable. Physical Exam Vital signs: Vital Signs 06/09/18 16:00 06/09/18 17:05 06/09/18 20:00 Temperature 97.5 F L 98.7 F 99.4 F Pulse Rate 78 72 84 Respiratory Rate 16 20 20 Blood Pressure 134/66 144/68 H 132/58 L Pulse Oximetry 99 100 96 06/10/18 00:00 06/10/18 03:35 06/10/18 04:00 Temperature 98.5 F 98.4 F Pulse Rate 89 92 H 93 H Respiratory Rate 20 20 Blood Pressure 130/57 L 131/60 Pulse Oximetry 98 99 06/10/18 08:00 06/10/18 12:00 Temperature 99.1 F 98.3 F Pulse Rate 78 92 H Respiratory Rate 18 18 Blood Pressure 135/73 140/59 L Pulse Oximetry 99 98 Intake & Output 06/09/18 06/10/18 06/10/18 18:59 06:59 18:59 Weight 103.6 kg 103.4 kg Other: # Voids 2 Date of Last Bowel Movement 06/09/18 # Bowel Movements 2 Narrative: GENERAL: Extremely pleasant middle-aged -Citizen Of [place] male in no acute distress. SKIN: Focused skin assessment warm and dry. CARDIOVASCULAR: Regular rate and rhythm. No obvious murmurs to auscultation. No chest tenderness to palpation. RESPIRATORY: No obvious rhonchi or wheezing. Clear to auscultation. Breath sounds equal bilaterally. GASTROINTESTINAL: Abdomen soft, non-tender, nondistended. BS normal. MUSCULOSKELETAL: Extremities without clubbing, cyanosis, or edema. No obvious deformities. NEUROLOGICAL: Awake, alert and oriented x4. No focal neurologic deficits. Moving both upper and lower extremities spontaneously. PSYCHIATRIC: Appropriate mood and affect. Insight and judgment normal. Results - Labs CBC & Chem 7: 06/09/18 11:50 06/09/18 11:50 Laboratory Results - last 24 hr 06/09/18 11:50 Sodium 143 Potassium 3.8 Chloride 108 H Carbon Dioxide 25.5 Anion Gap 10 BUN 13 Creatinine 1.12 Estimated GFR 81 L Random Glucose 118 H Calcium 7.9 L Total Bilirubin 0.7 AST 21 ALT 29 Alkaline Phosphatase 51 Total Protein 6.8 D Albumin 3.5 Assessment and Plan - Assessment (1) GI bleed Code(s): K92.2 - Gastrointestinal hemorrhage, unspecified Status: Acute (2) Anemia Code(s): D64.9 - Anemia, unspecified Status: Acute - Plan 58-year-old man with 1. GI Bleed CT Abd/Pelvis w/ no acute findings, images reviewed. Appreciate input from GI and plan for panendoscopy today June 10, 2018 Continue to hold aspirin Continue PPI 2. Anemia: Symptomatic. Transfused 2u pRBC H&H currently stable, and continue to monitor 3. DVT Prophylaxis: Pharmacologic contraindication in light of active bleeding (1) GI bleed Qualifiers: GI bleed type/associated pathology: unspecified gastrointestinal hemorrhage type Qualified Code(s): K92.2 - Gastrointestinal hemorrhage, unspecified (2) Anemia Qualifiers: Anemia type: unspecified type Qualified Code(s): D64.9 - Anemia, unspecified
[2018-06-10] MEDS ORDERED: Lidocaine PF 1% Inj 5 ML Syringe OTHER ONE (15:15)
--- NOTE | 2018-06-10 15:57 | P.PCN ---
Date of procedure: 06/10/18 Pre-op diagnosis: GI bleed Procedure: PROCEDURE PERFORMED EGD followed by colonoscopy with snare polypectomy PROCEDURE: The procedure, risks and benefits were discussed with Patient/POA and informed consent was obtained. Anesthesia sedated Patient with Diprivan. Patient was placed in the left lateral decubitus position. EGD: The Pentax videoscope was introduced through the oropharynx and advanced to the second portion of the duodenum under direct visualization. Retroflexion was performed in the stomach. FINDINGS: The esophagus this appeared to be unremarkable and within normal limits The stomach this to appear to be unremarkable and within normal limits The duodenum this to appear to be unremarkable and within normal limits Colonoscopy: The Pentax videoscope was introduced through the rectum and advanced to cecum where the ileocecal valve and appendiceal orifice were identified. Retroflexion was performed in the rectum. Colonic prep was fair FINDINGS: Colonic withdrawal time greater than 6 minutes. As the scope was slowly withdrawn colonic mucosa was carefully inspected the patient was noted to have a small polyp in the descending colon this was excised using cold snare technique and it was retrieved for further evaluation there was evidence of heme noted mostly on the colon the more proximal portions of the colon showed no evidence of blood the patient was noted to have scattered diverticulosis throughout the colon otherwise colonic examination was unremarkable so is retroflexion and rectal examination ESTIMATED BLOOD LOSS: None SPECIMENS REMOVED: Colon biopsy COMPLICATIONS: None IMPRESSION: Normal EGD Colon polyp Scattered colonic diverticulosis Probable diverticular bleed with no active bleeding PLAN: We will advance to a clear liquid diet today If no further bleeding by tomorrow we will advance diet and hopefully home soon Await pathology Colonoscopy in 5 years Continue with current supportive measures Anesthesia: MAC Surgeon: Conor Dietz Condition: stable Disposition: floor
[2018-06-11 06:08] LABS: Hematocrit 25.4 % (39.0-51.0); Hemoglobin 8.6 gm/dL (13.0-17.0); Mean Corpuscular HGB Conc 33.9 % (32.0-36.0); Mean Corpuscular Hemoglobin 28.9 pg (27.0-34.0); Mean Corpuscular Volume 85.1 fL (80.0-100.0); Mean Platelet Volume 7.4 fL (7.0-11.0); Platelet Count 338 th/mm3 (150-450); Red Blood Count 2.98 mil/mm3 (4.50-5.90); Red Cell Distribution Width 14.4 % (11.6-17.2); White Blood Count 15.4 th/mm3 (4.0-11.0)
[2018-06-11 08:40] VITALS: BP 120/67; PULSE 85; TEMP 98.1; O2SAT 98
[2018-06-11] MEDS ORDERED: Lisinopril 20 MG Tablet PO SCH (09:00)
--- NOTE | 2018-06-11 10:05 | P.PN ---
Subjective Interval history: Follow-up GI bleed/symptomatic anemia June 10, 2018-patient seen and examined, currently n.p.o. pending panendoscopy. Still reports bright red blood per rectum. by the bedside. Vital stable. June 11, 2018-patient seen and examined, denies any bleeding overnight. Remains stable. Physical Exam Vital signs: Vital Signs 06/10/18 12:00 06/10/18 16:10 06/10/18 20:00 Temperature 98.3 F 98.9 F 98.3 F Pulse Rate 92 H 91 H 76 Respiratory Rate Blood Pressure 140/59 L 126/65 132/72 Pulse Oximetry 98 99 100 06/11/18 00:00 06/11/18 04:00 06/11/18 08:00 Temperature 98.1 F 98.2 F 98.1 F Pulse Rate 72 84 85 Respiratory Rate Blood Pressure 121/69 124/60 120/67 Pulse Oximetry 99 99 98 Intake & Output 06/10/18 06/11/18 06/11/18 18:59 06:59 18:59 Intake Total 500 / 500 Balance 500 / 500 Weight 102.1 kg Intake: Anesthesia Amount 500 / 500 Other: # Voids 4 3 Date of Last Bowel Movement 06/09/18 06/10/18 Narrative: GENERAL: Extremely pleasant middle-aged -[place] male in no acute distress. SKIN: Focused skin assessment warm and dry. CARDIOVASCULAR: Regular rate and rhythm. No obvious murmurs to auscultation. No chest tenderness to palpation. RESPIRATORY: No obvious rhonchi or wheezing. Clear to auscultation. Breath sounds equal bilaterally. GASTROINTESTINAL: Abdomen soft, non-tender, nondistended. BS normal. MUSCULOSKELETAL: Extremities without clubbing, cyanosis, or edema. No obvious deformities. NEUROLOGICAL: Awake, alert and oriented x4. No focal neurologic deficits. Moving both upper and lower extremities spontaneously. PSYCHIATRIC: Appropriate mood and affect. Insight and judgment normal. Results - Labs CBC & Chem 7: 06/11/18 05:41 06/09/18 11:50 Laboratory Results - last 24 hr 06/11/18 05:41 WBC 15.4 H RBC 2.98 L Hgb 8.6 L Hct 25.4 L MCV 85.1 MCH 28.9 MCHC 33.9 RDW 14.4 Plt Count 338 MPV 7.4 - Procedures EGD and colonoscopy June 10, 2018 Assessment and Plan - Assessment (1) GI bleed Code(s): K92.2 - Gastrointestinal hemorrhage, unspecified Status: Acute (2) Anemia Code(s): D64.9 - Anemia, unspecified Status: Acute - Plan 58-year-old man with 1. GI Bleed-resolved CT Abd/Pelvis w/ no acute findings, images reviewed. Appreciate input from GI and s/p panendoscopy June 10, 2018. Biopsy pending Continue to hold aspirin;, however will resume it upon discharge Continue PPI 2. Anemia: Symptomatic. Transfused 2u pRBC H&H currently stable, and continue to monitor 3. DVT Prophylaxis: Pharmacologic contraindication in light of active bleeding (1) GI bleed Qualifiers: GI bleed type/associated pathology: unspecified gastrointestinal hemorrhage type Qualified Code(s): K92.2 - Gastrointestinal hemorrhage, unspecified (2) Anemia Qualifiers: Anemia type: unspecified type Qualified Code(s): D64.9 - Anemia, unspecified
--- NOTE | 2018-06-11 10:07 | P.DS ---
Date of admission: 06/08/18 22:53 Primary care physician: UNKNOWN Brief History from admission: This is a 58-year-old male with a PMH of HTN who presented to the ER for c/o rectal bleeding x2 days. States he has a h/o rectal bleeding from hemorrhoids approx 10yrs ago, s/p Colonoscopy q5 yrs which have been stable. States he woke up 2 days ago and had a bowel movement w/ significant amount of blood in the toilet, also notes multiple episodes of diarrhea. Seen by PCP at that time , symptoms thought to be due to hemorrhoids and given suppository. Notes ongoing rectal bleeding. On ASA 325mg qd, however stopped taking it 2 days ago at onset of symptoms. Also notes lethargy/fatigue. On arrival, BP 141/63, HR 100, O2 sat 97% on RA, Afebrile. WBC 12.0. Hemoglobin 7.2, previously 13.4 on 10/05/2011. INR 1.0. Chemistry essentially unremarkable. CT Abdomen/Pelvis no acute findings. 2u pRBC ordered in ER, currently pending transfusion. DS: Diagnosis - Discharge Diagnosis (1) GI bleed Status: Acute (2) Anemia Status: Acute DS: Summary Hospital Course: Patient admitted with consultation to gastroenterology. He underwent panendoscopy. He was transfused 2 unit packed red blood cell. Prior to discharge, H&H stable and bleeding episode resolved. He will follow outpatient with GI for colonoscopy in 5 years, however he will obtain biopsy report from GI. - Time Spent with Patient Total time spent providing and/or coordinating discharge services: Less than 30 minutes - Quality: VTE Deep Vein Thrombosis/Pulmonary Embolism Present on Admission: No Exam Vital signs: Vital Signs 06/10/18 12:00 06/10/18 16:10 06/10/18 20:00 Temperature 98.3 F 98.9 F 98.3 F Pulse Rate 92 H 91 H 76 Respiratory Rate 18 18 18 Blood Pressure 140/59 L 126/65 132/72 Pulse Oximetry 98 99 100 06/11/18 00:00 06/11/18 04:00 06/11/18 08:00 Temperature 98.1 F 98.2 F 98.1 F Pulse Rate 72 84 85 Respiratory Rate 18 18 18 Blood Pressure 121/69 124/60 120/67 Pulse Oximetry 99 99 98 Intake & Output 06/10/18 06/11/18 06/11/18 18:59 06:59 18:59 Intake Total 500 / 500 Balance 500 / 500 Weight 102.1 kg Intake: Anesthesia Amount 500 / 500 Other: # Voids 4 3 Date of Last Bowel Movement 06/09/18 06/10/18 Narrative: GENERAL: Extremely pleasant middle-aged -[place] male in no acute distress. SKIN: Focused skin assessment warm and dry. CARDIOVASCULAR: Regular rate and rhythm. No obvious murmurs to auscultation. No chest tenderness to palpation. RESPIRATORY: No obvious rhonchi or wheezing. Clear to auscultation. Breath sounds equal bilaterally. GASTROINTESTINAL: Abdomen soft, non-tender, nondistended. BS normal. MUSCULOSKELETAL: Extremities without clubbing, cyanosis, or edema. No obvious deformities. NEUROLOGICAL: Awake, alert and oriented x4. No focal neurologic deficits. Moving both upper and lower extremities spontaneously. PSYCHIATRIC: Appropriate mood and affect. Insight and judgment normal. Results Procedures completed during hospitalization: EGD and colonoscopy June 10, 2018 Pending studies at discharge: Pending at discharge 06/10/18 07:34 Surgical [PTH] Routine Labs on day of discharge: Labs from last 24 hours 06/11/18 05:41 WBC 15.4 H RBC 2.98 L Hgb 8.6 L Hct 25.4 L MCV 85.1 MCH 28.9 MCHC 33.9 RDW 14.4 Plt Count 338 MPV 7.4 - Impressions ITS Impressions Abdomen/Pelvis CT 06/08/18 21:14 CONCLUSION: 1. No acute abnormalities are demonstrated. 2. Sigmoid colon diverticulosis. No diverticulitis or other acute inflammatory changes. Discharge Plan - Discharge Disposition Patient Disposition: 01 Discharge Home - Discharge Condition Condition: Stable - Discharge Order Discharge Orders: Discharge Order (Routine); Ordered 06/11/18 Ordered By: Andre Gilbert - Physicians Team Primary Care Provider: UNKNOWN, Attending Provider: Andre Gilbert Other Providers: Issac Joy MD
[2018-06-11] MEDS: Pantoprazole Inj 40 MG Vial IV.PUSH SCH (10:51)
--- NOTE | 2018-06-11 11:04 | P.PNGI ---
Subjective Interval history: Patient sitting up in chair at bedside States tolerated clear liquid diet well Denies any noted bleeding Physical Exam Vital signs: Vital Signs 06/10/18 12:00 06/10/18 16:10 06/10/18 20:00 Temperature 98.3 F 98.9 F 98.3 F Pulse Rate 92 H 91 H 76 Respiratory Rate 18 Blood Pressure 140/59 L 126/65 132/72 Pulse Oximetry 98 99 100 06/11/18 00:00 06/11/18 04:00 06/11/18 08:00 Temperature 98.1 F 98.2 F 98.1 F Pulse Rate 72 84 85 Respiratory Rate 18 Blood Pressure 121/69 124/60 120/67 Pulse Oximetry 99 99 98 Intake & Output 06/10/18 06/11/18 06/11/18 18:59 06:59 18:59 Intake Total 500 / 500 Balance 500 / 500 Weight 102.1 kg Intake: Anesthesia Amount 500 / 500 Other: # Voids 4 3 Date of Last Bowel Movement 06/09/18 06/10/18 - Constitutional no acute distress - Routine HEENT Exam Head: Present: normocephalic - Routine Respiratory Exam Present: CTA bilaterally. Absent: accessory muscle use - Routine Abdominal Exam Present: soft, normoactive bowel sounds. Absent: tenderness, guarding, firm - Routine Skin Exam Present: dry, warm - Routine Neurological Exam Present: alert, oriented X3 Results - Labs CBC & Chem 7: 06/11/18 05:41 06/09/18 11:50 Laboratory Results - last 24 hr 06/11/18 05:41 WBC 15.4 H RBC 2.98 L Hgb 8.6 L Hct 25.4 L MCV 85.1 MCH 28.9 MCHC 33.9 RDW 14.4 Plt Count 338 MPV 7.4 - Procedures EGD and colonoscopy June 10, 2018 Assessment and Plan - Plan 06/11/2018 GI bleed with anemia 06/10/2018 EGD and colonoscopy with snare polypectomy revealed the following findings Normal EGD Colon polyp Scattered colonic diverticulosis Probable diverticular bleed with no active bleeding WBC 15.4 hemoglobin 8.6 hematocrit 25.4. No active bleeding reported or noted. Plan -Diet advanced as per attending-cardiac diet -Continue to monitor for bleeding -Biopsies pending -Recommended colonoscopy in 5 years -Monitor labs -Supportive care -Further recommendations to follow This patient has been seen by myself and Dr. Patel and this note is written on his behalf - Attending Attestation Dr. Patel
== END 2018-06-11 11:37 | disposition home or self-care (01) ==
LOC: NEDA 19:36 → NEPD 19:36 → OBSVTOIN 22:53 → NEPHCDU 23:45 → N07 06-09 17:00
PROVIDERS: ADMIT Hospitalist; ATTEND Hospitalist
PROC: COLONOS (2018-06-10 15:15)
PROC: PANENDO (2018-06-10 15:15)